=== PATIENT | female | born 1980 | race Native Hawaiian/Other Pacific Islander ===

== ENCOUNTER 2021-12-22 15:08 | Outpatient (CLI) | payer BC | END 2021-12-22 19:16 | disposition home or self-care (01) | LOC: RESP 15:08 | PROVIDERS: ATTEND Nurse Practitioner Family | DX: Z76.89 Persons encountering health services in other specified circumstances (principal); Z82.41 Family history of sudden cardiac death ==

== ENCOUNTER 2022-03-03 15:49 | Outpatient (CLI) | payer BC | END 2022-03-03 19:01 | disposition home or self-care (01) | LOC: CT 15:49 | PROVIDERS: ATTEND Nurse Practitioner Family | DX: R10.9 Unspecified abdominal pain (principal) ==